=== PATIENT | female | born 1950 | race Caucasian/White ===

== ENCOUNTER 2023-03-06 12:00 | Emergency (ER) | payer OTHER ==
[~2023-03-06] VITALS: Ht 154.9 cm; Wt 94.3 kg
[2023-03-06 14:41] VITALS: BP 138/68
== END 2023-03-06 15:59 | disposition home or self-care (01) ==
LOC: ER 12:00
DX: I83.891 Varicose veins of right lower extremity with other complications (principal)

== ENCOUNTER 2024-08-15 18:01 | Emergency (ER) | payer OTHER ==
[~2024-08-15] VITALS: Ht 152.4 cm; Wt 95.3 kg
[2024-08-15] MEDS: TETRACAINE HCL 0.5% OPTH(EYE) SOLN 4ML RIGHTEYE ONE ×2 (19:30→19:44)
[2024-08-15] MEDS: FLUORESCEIN SOD OPTH TEST STRIP RIGHTEYE ONE (19:59)
--- NOTE | 2024-08-15 20:06 | ED.PDOC ---
Eye-HPI HPI Comments 74 year old female presents to ER with right eye complaint x 2 days. Patient states she has been experiencing right eye pain and redness to right eye 2 days ago. Denies any trauma/injury. She reports 7/10 burning pain to right eye. Denies use of medications for current symptoms. 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 Denies skin changes, vision changes, n/v, eye drainage, headache, numbness/tingling or any further symptoms/complaints Chief Complaint: Eye Problem Time Seen by MD: 18:09 Primary Care Provider: JO Reviewed Notes: Nurses Notes, Medications, Allergies Allergies: Coded Allergies: NO KNOWN ALLERGIES (Unverified , 03/06/23) Home Meds Active Scripts Gentamicin Sulfate (Gentamicin Sulfate) 0.3 % Radha, 2 DROP RIGHTEYE 6XD for 5 Days, #1 BOTTLE 0 Refills Prov:EUGENE PIERCE 08/15/24 Information Source: Patient Mode of Arrival: Ambulatory Past Medical History PAST MEDICAL HISTORY: Arthritis (RA), High Lipids, HTN Surgical History: , Hysterectomy Surgical History (Other): Right corneal transplant- 2020 Family History Family History: Unknown Social History Smoker: Non-Smoker Alcohol: Denies ETOH Use Drugs: Denies Drug Use Lives In: Home Constitutional: denies: chills, diaphoresis, fatigue, fever, malaise, sweats, weakness, others EENTM: reports: others (As stated in HPI) Respiratory: denies: cough, hemoptysis, orthopnea, SOB at rest, shortness of breath, SOB with excertion, stridor, wheezing, others Cardiovascular: denies: chest pain, dizzy spells, diaphoresis, Dyspnea on exertion, edema, irregular heart beat, left arm pain, lightheadedness, palpitations, PND, syncope, others Gastrointestinal: denies: abdomen distended, abdominal pain, blood streaked bowels, constipated, diarrhea, dysphagia, difficulty swallowing, hematemesis, melena, nausea, poor appetite, poor fluid intake, rectal bleeding, rectal pain, vomiting, others Genitourinary: denies: abnormal vagina bleeding, burning, dyspareunia, dysuria, flank pain, frequency, hematuria, incontinence, pain, , vagina discharge, urgency, others Neurological: denies: dizziness, fainting, headache, left sided numbness, left sided weakness, numbness, paresthesia, pre-existing deficit, right sided numbness, right sided weakness, seizure, speech problems, tingling, tremors, weakness, others Musculoskeletal: denies: back pain, gout, joint pain, joint swelling, muscle pain, muscle stiffness, neck pain, others Integumetry: denies: bruises, change in color, change in hair/nails, dryness, laceration, lesions, lumps, rash, wounds, others Allergic/Immunocompromised: denies: Difficulty Healing, Frequent Infections, Hives, Itching, others Hematologic/Lymphatic: denies: anemia, blood clots, easy bleeding, easy bruising, swollen glands, others Endocrine: denies: excessive hunger, excessive sweating, excessive thirst, excessive urination, flushing, intolerance to cold, intolerance to heat, unexplained weight gain, unexplained weight loss, others Psychiatric: denies: anxiety, bipolar disorder, depression, hopeless, panic disorder, schizophrenia, sleepless, suicidal, others Physical Exam General Appearance: No Apparent Distress, Obese HEENT: PERRL/EOMI, Pharynx Normal, TMs Normal, Other ([place] examination right eye- subconjunctival injection and corneal abrasion noted. No foreign body or corneal ulcer noted. No drainage from right eye noted. Visual acuity right eye- 20/40, visual acuity left eye-20/40, visual acuity using both eyes - 20/40) Neck: Full Range of Motion, Non-Tender, Normal Respiratory: Chest Non-Tender, Lungs Clear, No Accessory Muscle Use, No Respiratory Distress, Normal Breath Sounds Cardiovascular: No Murmur, No Gallop, Regular Rate/Rhythm Breast Exam: Deferred Gastrointestinal: NOT DONE Genitalia: Deferred Pelvic: Deferred Rectal: Deferred Extremities: Normal capillary refill, Normal range of motion Neurologic: Alert, assembler equipment II-XII nml as Tested, No Motor Deficits, Normal Affect, Normal Mood, No Sensory Deficits Cerebellar Function: Normal Reflexes: Normal Skin: Dry, Normal Color, Warm Lymphatic: No Adenopathy Was a procedure done? Was a procedure done?: No Sedation Sedation?: No EENT DIFF Eye: Corneal Lacerations, Corneal Ulceration, Globe Rupture, Hordeolum (stye), Orbital Cellulits, Periorbital Cellulits X-Ray, Labs, Meds, VS Vital Signs Date Time Temp Pulse Resp B/P (MAP) Pulse Ox O2 Delivery O2 Flow Rate FiO2 08/15/24 19:38 100 Room Air 0 08/15/24 18:16 97.9 73 18 128/56 (80) 100 Fluorescein stain ophthalmic ordered Tetracaine ophthalmic ordered Patient in no distress during ER visit/prior to discharge Advised to follow up with PCP and test director in 1-2 days Patient verbalized understanding and agreeable with current plan of care Advised to return to ER immediately if symptoms worsen Time of 1ST Reevaluation: 20:02 Reevaluation 1ST: N/A Patient Education/Counseling: Diagnosis, Treatment, Prognosis, Need For Follow Up Family Education/Counseling: No Family Present Departure 1 Departure Time of Disposition: 20:22 Impression: Primary Impression: Corneal abrasion Qualified Codes: S05.01XA - Injury of conjunctiva and corneal abrasion without foreign body, right eye, initial encounter Disposition: HOME / SELF CARE / HOMELESS Condition: Stable e-Prescriptions Gentamicin Sulfate (Gentamicin Sulfate) 0.3 % Radha 2 DROP RIGHTEYE 6XD for 5 Days, #1 BOTTLE 0 Refills Prov: EUGENE PIERCE 08/15/24 Discharged With: Friend Critical Care Note Critical Care Time?: No Stability Stability form required: No Heart Score Heart Score: Heart Score Response (Comments) Value History N/A 0 EKG N/A 0 Age N/A 0 Risk Factors N/A 0 Troponin N/A 0 Total 0 EUGENE PIERCE Aug 15, 2024 20:06
[2024-08-15] MEDS ORDERED: GENT0.3S10 RIGHTEYE (20:33)
[2024-08-15 20:58] VITALS: BP 127/62; PULSE 76; RESP 18; TEMP 98; O2SAT 99
== END 2024-08-15 21:00 | disposition home or self-care (01) ==
LOC: ER 18:01
DX: S05.01XA Injury of conjunctiva and corneal abrasion without foreign body, right eye, initial encounter (principal); I10 Essential (primary) hypertension; Z90.710 Acquired absence of both cervix and uterus; X58.XXXA Exposure to other specified factors, initial encounter; Y93.89 Activity, other specified; Y92.89 Other specified places as the place of occurrence of the external cause; Y99.8 Other external cause status